=== PATIENT | female | born 1985 | race Caucasian/White ===

== ENCOUNTER 2016-07-11 18:26 | Inpatient (IN) | payer OTHER ==
[~2016-07-11] VITALS: Ht 152.4 cm; Wt 54.0 kg
[~2016-07-11 18:26] MED LIST: ALBU0.0939 IH; LEVE750T3 PO; SYN.1 PO; [UNRECOGNIZED DRUG - CODE] PO; [UNRECOGNIZED DRUG - CODE] PO
--- NOTE | 2016-07-11 18:26 | NUR ---
Patient BIBA ACLS, transferred to bed 5. Dr. David and RN evaluating patient at bedside.
[2016-07-11] MEDS ORDERED: MORPHINE SULFATE 2 MG/ML SYR IVP ONE ×2 (18:30→19:45)
[2016-07-11] MEDS ORDERED: ALBUTEROL SULFATE/IPRATROPIU 3 ML SOL IH ONE ×2 (18:30→19:45)
[2016-07-11] MEDS ORDERED: ONDANSETRON 4 MG/2 ML VIAL IVP ONE ×2 (18:30→19:45)
[2016-07-11] MEDS ORDERED: MAG SULF 2000 MG/WATER PREMIX 50 ML IV ONE (18:30)
[2016-07-11 18:32] VITALS: BP 151/100
--- NOTE | 2016-07-11 18:35 | NUR ---
PT BIBA FOR EVALUATION OF SOB X1 HOUR. HX SEIZURE DISORDER, ASTHMA, HYPOCALCEMIA; DENIES N/V; SKIN IS PINK/WARM/DRY; AAOX4 WITH EVEN AND STEADY GAIT; LUNGS CLEAR BL; HR EVEN AND REGULAR; PT DENIES ANY FEVER, CP, OR COUGH AT THIS TIME; PATIENT STATES PAIN OF 9/10 AT THIS TIME; VSS; PATIENT POSITIONED FOR COMFORT; HOB ELEVATED; BEDRAILS UP X2; BED DOWN. ER MD MADE AWARE OF PT STATUS.
[2016-07-11 18:58] LABS: BASOPHILS # (AUTO) 0.2 K/uL (0.00-0.22); EOSINOPHILS # (AUTO) 0.7 K/uL (0-0.4); EOSINOPHILS % (AUTO) 8.3 % (0.0-4.0); HEMATOCRIT 35.7 % (36-48); LYMPHOCYTES # (AUTO) 2.4 K/uL (2.5-16.5); LYMPHOCYTES % (AUTO) 30.7 % (20.5-51.1); MEAN CORPUSCULAR HEMOGLOBIN 32 pg (27-31); MEAN CORPUSCULAR HGB CONC 34 g/dL (33-37); MEAN CORPUSCULAR VOLUME 95 fL (80-94); MONOCYTES # (AUTO) 0.6 K/uL (0.8-1.0); NEUTROPHILS # (AUTO) 4.1 K/uL (1.8-7.7); PLATELET COUNT (AUTO) 268 K/uL (140-450); RED BLOOD CELL COUNT(AUTO) 3.76 MIL/uL (4.20-5.40); RED CELL DISTRIBUTION WIDTH 12.2 % (11.6-13.7)
[2016-07-11 19:23] LABS: ALBUMIN 4.2 g/dL (3.4-5.0); CARBON DIOXIDE 31.8 mmol/L (21-32); CREATININE 0.9 mg/dL (0.6-1.3); TOTAL BILIRUBIN 0.6 mg/dL (0.0-1.0); TOTAL PROTEIN, SERUM 7.3 g/dL (6.4-8.2)
--- NOTE | 2016-07-11 19:23 | NUR ---
REPORT GIVEN TO SONJA KIRBY FOR CONTINUATION OF CARE
[2016-07-11 19:25] LABS: POTASSIUM 2.8 mmol/L (3.5-5.1)
--- NOTE | 2016-07-11 19:25 | NUR ---
PT RESTING IN BED, RT AT BED SIDE PERFORMING BRATHING TX. PT C/O PAIN 07/15. ER MD NOTIFIED. VSS.
[2016-07-11] MEDS ORDERED: POTASSIUM CHLORIDE 10 MEQ TABER PO ONE ×2 (19:30→22:30)
[2016-07-11 19:32] LABS: INR 1.2 (0.8-1.2); PARTIAL THROMBOPLASTIN TIME 26.8 secs (22-35.6); PROTHROMBIN TIME 11.2 secs (10.8-13.4)
[2016-07-11] MEDS ORDERED: PIPERACILLIN/TAZOBACTAM 3.375 GM in DEXTROSE 5% 50 ML IV ONE (19:45)
[2016-07-11] MEDS ORDERED: PIPERACILLIN/TAZOBACTAM 3.375 GM VIAL IV ONE (20:16)
--- NOTE | 2016-07-11 20:33 | NUR ---
Patient will be admitted to care of DR SIMPSON. Admited to TELEMETRY. Will go to [id number]. Belongings list completed. Report to SONJA KEANE.
--- NOTE | 2016-07-11 20:47 | NUR ---
PT TRASFERED TO TELEMETRY FLOOR VIA GURNEY. VSS, NO S/S OF DISTRESS NOTED DURING TRASFER. ACCOMPANIED BY RN AND EMT.
[2016-07-11 20:50] VITALS: BP 103/71
--- NOTE | 2016-07-11 20:50 | NUR ---
ADMITTED A 31F FROM ER, TELE PT. CAME BY MATILDE. AWAKE, ALERT AND ORIENTEDX4. WITH NO ACUTE DISTRESS NOTED. ON RA O2 SAT 96%. WITH SOME WHEEZING NOTED ON EXPIRATION. NO C/O PAIN AT THIS TIME. HAS IVF INFUSING WELL ON THE LT AC #20. CLEAR AND PATENT. PLAN OF CARE DISCUSSED AND VERBALIZED UNDERSTANDING. PLACED COMFORTABLY IN BED. BED ON LOW POSITION. SIDE RAILS UP . X2. WITH CALL LIGHT PLACED WITHIN EASY REACH. WILL FOLLOW UP ADMIT ORDERS.
--- NOTE | 2016-07-11 22:00 | NUR ---
PT NEEDS ATTENDED. . NO SOB NOTED. WILL CONTINUE TO MONITOR.
[2016-07-11] MEDS ORDERED: ALBUTEROL 0.083% 2.5 MG/3 ML NEBU IH PRN (22:25)
[2016-07-11] MEDS ORDERED: ZOLPIDEM 5 MG TAB PO PRN (22:25)
[2016-07-11] MEDS: NACL 0.9% 1,000 ML IV SCH (22:25)
[2016-07-11] MEDS ORDERED: methylPREDNISolone SS 125 MG/2 ML VIAL IVP ONE (22:35)
[2016-07-11 22:48] LABS: APPEARANCE,URINE CLEAR (CLEAR); BILIRUBIN,URINE NEGATIVE (NEGATIVE); BLOOD, URINE TRACE-L (NEGATIVE); COLOR,URINE YELLOW (YELLOW); LEUKOCYTE ESTERASE ,URINE 1+ (NEGATIVE); NITRITE, URINE NEGATIVE (NEGATIVE); PROTEIN,URINE NEGATIVE (NEGATIVE); UGLUCOSE NEGATIVE (NEGATIVE); UROBILINOGEN,URINE 0.2 EU/dL (0.2 - 1)
[2016-07-11 23:01] LABS: BACTERIA,URINE 1+ /HPF (None Seen); RBC,URINE 0-3 /HPF (0-5)
[2016-07-11 23:06] LABS: CHOL/HDL RATIO 3.9 (1-4.5); FREE T4 (FREE THYROXINE) 1.11 ng/dL (0.76-1.46); THYROID STIMULATING HORMONE 6.23 uIU/mL (0.34-3.76)
[2016-07-11 23:30] VITALS: BP 120/74
[2016-07-11] MEDS: MORPHINE SULFATE 2 MG/ML SYR IVP PRN (23:41)
--- NOTE | 2016-07-11 23:41 | NUR ---
PT C/O PAIN . MEDICATED ORDERED. WILL CONTINUE TO MONITOR.
[2016-07-11] MEDS: ONDANSETRON 4 MG/2 ML VIAL IVP PRN (23:59)
--- NOTE | 2016-07-12 00:12 | NUR ---
PT C/O SOB. WITH SOME WHEEZING. RT WAS PAGED AND CAME .GAVE BREATHING TREATMENT.
[2016-07-12] MEDS ORDERED: ALBUTEROL SULFATE/IPRATROPIU 3 ML SOL IH PRN (00:20)
[2016-07-12] MEDS ORDERED: ALBUTEROL 0.083% 2.5 MG/3 ML NEBU IH SCH (01:00)
[2016-07-12 03:47] VITALS: BP 109/82
[2016-07-12] MEDS: MORPHINE SULFATE 2 MG/ML SYR IVP PRN ×2 (03:50→09:05)
--- NOTE | 2016-07-12 03:50 | NUR ---
PT AWAKE AGAIN AND C/O ABDOMINAL PAIN. NO NAUSEA NOTED. MEDICATED ORDERED. WILL CONTINUE TO MONITOR.
[2016-07-12] MEDS: methylPREDNISolone SS 40 MG/ML VIAL IVP SCH ×3 (05:40→21:48)
--- NOTE | 2016-07-12 06:00 | NUR ---
SCD MACHINE TO BLE APPLIED PER MD ORDER. PT AWARE OF BENEFITS.
[2016-07-12] MEDS: ALBUTEROL SULFATE/IPRATROPIU 3 ML SOL IH SCH ×5 (06:32→23:00)
[2016-07-12 06:36] LABS: HEMATOCRIT 35.1 % (36-48); HEMOGLOBIN 11.9 g/dL (12.0-16.0); MEAN CORPUSCULAR HEMOGLOBIN 32 pg (27-31); MEAN CORPUSCULAR HGB CONC 34 g/dL (33-37); MEAN CORPUSCULAR VOLUME 96 fL (80-94); PLATELET COUNT (AUTO) 262 K/uL (140-450); RED BLOOD CELL COUNT(AUTO) 3.66 MIL/uL (4.20-5.40); RED CELL DISTRIBUTION WIDTH 12.4 % (11.6-13.7); WHITE BLOOD COUNT (AUTO) 5.5 K/uL (4.8-10.8)
[2016-07-12 07:13] LABS: ANION GAP 17.1 (8-16); CREATININE 0.9 mg/dL (0.6-1.3); POTASSIUM 4.1 mmol/L (3.5-5.1)
[2016-07-12 07:15] LABS: MAGNESIUM 1.5 mg/dL (1.8-2.4); PHOSPHORUS 7.9 mg/dL (2.5-4.9)
--- NOTE | 2016-07-12 07:20 | NUR ---
ENDORSED PT IN STABLE CONDITION TO AM NURSE.
--- NOTE | 2016-07-12 07:25 | NUR ---
PATIENT LYING COMFORTABLY IN BED, NO SIGNS OF DISTRESS NOTED, A/O X 4.
[2016-07-12 07:46] LABS: BAND % (MANUAL) 1 % (0-8); LYMPHOCYTES % (MANUAL) 6 % (20-46); MONOCYTES % (MANUAL) 1 % (5-12); NEUTROPHILS % (MANUAL) 92 (43-65); PLATELET ESTIMATE ADEQUATE
[2016-07-12 07:50] LABS: CALCIUM 5.5 mg/dL (8.5-10.1)
[2016-07-12 08:00] VITALS: BP 91/57
--- NOTE | 2016-07-12 08:54 | NUR ---
PATIENT HAS BEEN SCREENED AND CATEGORIZED MODERATE NUTRITION RISK. PATIENT WILL BE SEEN WITHIN 3-5 DAYS OF ADMISSION. 07/14/16-07/16/[address]
[2016-07-12] MEDS: GABAPENTIN 300 MG CAP PO SCH ×2 (09:05→21:49)
[2016-07-12] MEDS: ONDANSETRON 4 MG/2 ML VIAL IVP PRN ×2 (09:05→22:54)
[2016-07-12] MEDS: levETIRAcetam 500 MG TAB PO SCH ×2 (09:06→21:49)
[2016-07-12] MEDS: LEVOTHYROXINE 0.1 MG TAB PO SCH (09:06)
[2016-07-12] MEDS: CALCIUM CARBONATE 500 MG TAB.CHEW PO SCH ×2 (09:07→21:49)
[2016-07-12] MEDS: NACL 0.9% 1,000 ML IV SCH (09:12)
--- NOTE | 2016-07-12 10:00 | NUR ---
SPOKE WITH DR. LONGORIA NOTIFIED THAT DR. GREWAL ORDERED TROPONIN AND HE WANTS ATTENDING TO ORDER ECHOCARDIOGRAM.
--- NOTE | 2016-07-12 11:25 | NUR ---
DR. LONGORIA notified mag level 1.5
[2016-07-12 11:46] VITALS: BP 134/91
[2016-07-12] MEDS: LORazepam 2 MG/ML VIAL IVP PRN (11:49)
--- NOTE | 2016-07-12 13:01 | NUR ---
pt was a q6 duoneb and it was changed to q4 duoneb pt refused tx no signs of distress noted at this time
--- NOTE | 2016-07-12 13:07 | NUR ---
spoke with jared ramachandran about the change of hhn tx and told jared ramachandran that pt refused tx
--- NOTE | 2016-07-12 13:20 | NUR ---
CM NOTE PER SURGERY REGISTRATION REP ЮЛИЯ MEREDITH FOR CERTIFIED PERSONAL FINANCE COUNSELOR KRISSY, REVIEWS SHOULD GO TO BOTH [facility] AND [facility]. FAXED INITIAL REVIEW TO [facility] [phone] PH# JULY [phone] AND TO [facility] [phone] PH# ROBERT [phone]
--- NOTE | 2016-07-12 14:44 | NUR ---
pt refused breathing tx hr 76 rr 20 02 sat 96% no signs of distress noted at this time
[2016-07-12] MEDS ORDERED: MAG SULF 2000 MG/WATER PREMIX 100 ML IV ONE (15:20)
[2016-07-12] MEDS ORDERED: CALCIUM ACETATE 667 MG TAB PO SCH (15:40)
[2016-07-12 16:00] VITALS: BP 109/67
--- NOTE | 2016-07-12 17:21 | NUR ---
Patient still sleeping, DR. Hernandez notified, seen as well.
--- NOTE | 2016-07-12 17:54 | NUR ---
Patient now more awake, arousable, open eyes, refused to eat dinner.
--- NOTE | 2016-07-12 19:10 | NUR ---
SBAR REPORT GIVEN TO SONJA ROSAS
--- NOTE | 2016-07-12 19:30 | NUR ---
RECEIVED REPORT FROM AM NURSE. PT RESTING IN BED. AOX4, ABLE TO VERBALIZE NEEDS. PT DENIES CHEST PAIN, SOB, OR S/S OF ACUTE DISTRESS. HYDROGEN POWER PLANT MANAGER IN PLACE. PT STATES GENERALIZED WEAKNESS. PT INSTRUCTED TO USE CALL LIGHT TO GET ASSISTANCE TO COLLECT URINE SAMPLE. DISCUSSED AND REVIEWED PLAN OF CARE WITH PT. PT VERBALIZES UNDERSTANDING. IV ACCESS ASYMPTOMATIC, PATENT AND INTACT. IVF INFUSING WELL. SAFETY MEASURES ENSURED. CALL LIGHT WITHIN REACH. WILL CONTINUE TO MONITOR.
[2016-07-12 20:00] VITALS: BP_SYST 120; BP_SYST 91; BP_DIAS 42; BP_DIAS 52
--- NOTE | 2016-07-12 20:00 | NUR ---
PT C/O 10/15 PAIN, REQUESTING MORPHINE. CONTRAINDICATED BY LOW BP 91/42. PT ENCOURAGED USE DISTRACTION, REPOSITIONING AND RELAXATION TO RELIEVE PAIN. WILL RECHECK LATER.
[2016-07-12] MEDS: ATORVASTATIN 20 MG TAB PO SCH (21:49)
[2016-07-12] MEDS: CALCIUM CARB/VIT-D 500 MG/200 IU 1 TAB PO SCH (21:49)
--- NOTE | 2016-07-12 21:55 | NUR ---
MEDICATIONS ADMINISTERED WITH EDUCATION. PT VERBALIZED UNDERSTANDING AND TOLERATED MEDS WELL. ALL NEEDS MET. SAFETY MEASURES ENSURED. CALL LIGHT WITHIN REACH. WILL CONTINUE TO MONITOR.
--- NOTE | 2016-07-12 23:34 | NUR ---
PT WANTS TO SLEEP, REFUSED HHNTX, NO DISTRESS NOTED, NO SOB
[2016-07-13] VITALS: BP 120/52
[2016-07-13] MEDS: MORPHINE SULFATE 2 MG/ML SYR IVP PRN ×4 (00:42→20:21)
--- NOTE | 2016-07-13 00:42 | NUR ---
PT C/O PAIN. SEE PAIN ASSESSMENT. ADMINISTERED MORPHINE ORDERED. PT TOLERATED WELL. ALL NEEDS MET. SAFETY MEASURES ENSURED. CALL LIGHT WITHIN REACH. WILL CONTINUE TO MONITOR.
[2016-07-13] MEDS: ALBUTEROL SULFATE/IPRATROPIU 3 ML SOL IH SCH ×6 (03:10→23:19)
[2016-07-13 04:00] VITALS: BP 83/54
--- NOTE | 2016-07-13 04:00 | NUR ---
PT SLEEPING. VS NOTED. SPO2 90%, NC NOTED TO BE UNPLUGGED FROM O2 WALL. 2L O2 NC PUT BACK ON O2 WALL, SPO2 95%, RR 16. BP 83/54, HR 80, PT SLEEPING COMFORTABLY. CONDITION STABLE.
[2016-07-13] MEDS: methylPREDNISolone SS 40 MG/ML VIAL IVP SCH ×3 (04:51→20:21)
[2016-07-13 06:15] LABS: BASOPHILS % (AUTO) 0.4 % (0.0-2.0); EOSINOPHILS # (AUTO) 0.2 K/uL (0-0.4); HEMATOCRIT 35.4 % (36-48); LYMPHOCYTES # (AUTO) 0.4 K/uL (2.5-16.5); LYMPHOCYTES % (AUTO) 3.8 % (20.5-51.1); MEAN CORPUSCULAR HEMOGLOBIN 33 pg (27-31); MEAN CORPUSCULAR HGB CONC 34 g/dL (33-37); MEAN CORPUSCULAR VOLUME 96 fL (80-94); MONOCYTES # (AUTO) 0.1 K/uL (0.8-1.0); MONOCYTES % (AUTO) 0.7 % (1.7-9.3); NEUTROPHILS # (AUTO) 9.1 K/uL (1.8-7.7); NEUTROPHILS % (AUTO) 93.1 % (42.2-75.2); PLATELET COUNT (AUTO) 263 K/uL (140-450); RED BLOOD CELL COUNT(AUTO) 3.68 MIL/uL (4.20-5.40); RED CELL DISTRIBUTION WIDTH 12.8 % (11.6-13.7)
[2016-07-13 06:38] LABS: MAGNESIUM 2.7 mg/dL (1.8-2.4)
[2016-07-13] MEDS ORDERED: CALCIUM GLUCONATE 10% 1,000 MG in NACL 0.9% 50 ML IV ONE (06:45)
[2016-07-13 06:55] LABS: ANION GAP 16.1 (8-16); CARBON DIOXIDE 26.6 mmol/L (21-32); CREATININE 0.8 mg/dL (0.6-1.3); POTASSIUM 3.7 mmol/L (3.5-5.1); WHITE BLOOD COUNT (AUTO) 9.8 K/uL (4.8-10.8)
[2016-07-13 07:19] LABS: CALCIUM 5.1 mg/dL (8.5-10.1)
--- NOTE | 2016-07-13 07:21 | NUR ---
CONDITION STABLE. ENDORSED PLAN OF CARE TO AM NURSE.
--- NOTE | 2016-07-13 07:30 | NUR ---
RECEIVED PT ON BED AAOX4 WITH HX OF SEIZURES. ON SEIZURE PRECAUTIONS, SIDE RAILS PADDED. NO SOB NOTED, WITH 02 AT 2LPM VIA NASAL CANNULA, O2 SATS AT 95%. NO C/O PAIN AT THIS TIME. IV TO LT AC PATENT AND INTACT. CHEST DIMINISHED AIR ENTRY TO THE BASES, WHEEZING HEARD BILATERALLY. ABDOMEN SOFT, BOWEL SOUNDS PRESENT. NO EDEMA NOTED. SCD'S IN PLACE. INSTRUCTED PT TO CALL FOR ASSISTANCE, CALL LIGHT WITHIN REACH. PT VERBALIZED UNDERSTANDING.
[2016-07-13 08:00] VITALS: BP 104/68
[2016-07-13] MEDS: GABAPENTIN 300 MG CAP PO SCH ×2 (09:12→20:23)
[2016-07-13] MEDS: LEVOTHYROXINE 0.1 MG TAB PO SCH (09:12)
[2016-07-13] MEDS: LACTOBACILLUS RHAMNOSUS GG 1 EACH CAP PO SCH (09:12)
[2016-07-13] MEDS: CALCIUM CARB/VIT-D 500 MG/200 IU 1 TAB PO SCH (09:12)
[2016-07-13] MEDS: CALCIUM CARBONATE 500 MG TAB.CHEW PO SCH (09:12)
[2016-07-13] MEDS: levETIRAcetam 500 MG TAB PO SCH ×2 (09:13→20:22)
[2016-07-13 09:47] LABS: T4 (THYROXINE) 7.3 ug/dL (4.5-12.0)
--- NOTE | 2016-07-13 10:00 | NUR ---
PT SEEN BY DR. GREWAL WITH NEW ORDERS.
--- NOTE | 2016-07-13 11:14 | NUR ---
AWAKE AND ALERT C/O NASAL DRYNESS WITH SUPPLEMENTAL OXYGEN USE POST HHN THERAPY ADDED HUMIDIFIER
[2016-07-13 12:00] VITALS: BP 140/81
[2016-07-13] MEDS ORDERED: CALCIUM ACETATE 667 MG TAB PO SCH (13:01)
[2016-07-13 13:05] LABS: BLOOD GAS BASE EXCESS -1.3 mmol/L (-2.0-2.0); BLOOD GAS HCO3 22.7 mmol/L; BLOOD GAS O2 SAT% 98.3 % (92.0-98.5); BLOOD GAS PCO2 35.4 mmHg (20-50); BLOOD GAS PH 7.424 (7.35-7.45); BLOOD GAS PO2 132.1 mmHg
[2016-07-13] MEDS ORDERED: guaiFENesin/CODEINE 100/10MG 5 ML UDC PO PRN (13:15)
[2016-07-13] MEDS: LORazepam 2 MG/ML VIAL IVP PRN (13:39)
[2016-07-13] MEDS: ONDANSETRON 4 MG/2 ML VIAL IVP PRN (13:49)
[2016-07-13] MEDS ORDERED: CALCIUM GLUCONATE 10% 2,000 MG in NACL 0.9% 50 ML IV SCH (14:00)
[2016-07-13 14:50] LABS: AMPHETAMINE, URINE NEG. ng/ml (NEG <=1000); BARBITURATE, URINE NEG. ng/ml (NEG <=200); BENZODIAZEPINE, URINE NEG. ng/mL (NEG <=200); CANNABINOID, URINE NEG. ng/mL (NEG <=50); COCAINE, URINE NEG. ng/mL (NEG <=300); OPIATE, URINE POS. ng/mL (NEG <=2000); PHENCYCLIDINE SCREEN,URINE NEG. ng/mL (NEG <=25)
--- NOTE | 2016-07-13 15:02 | NUR ---
CM NOTE FAXED CONCURRENT REVIEW TO [facility] [phone] PH# JULY [phone] AND TO SYDNIE Moon [phone] PH# ROBERT [phone]
[2016-07-13 16:00] VITALS: BP 122/76
--- NOTE | 2016-07-13 17:53 | NUR ---
DR. PEREZ IS HERE TO SEE PT. Addendum: 07/13/16 at 1835 by Oneida Brown RN DISREGARD ABOVE NOTES. WRONG DR. METZGER.
--- NOTE | 2016-07-13 18:35 | NUR ---
PT SEEN BY DR. DUMONT WITH NEW ORDERS.
--- NOTE | 2016-07-13 19:09 | NUR ---
PT RESTING. NO SOB NOTED. NO COMPLAINTS MADE AT TIME. WILL ENDORSE TO NEXT SHIFT NURSE FOR CONTINUE OF CARE.
[2016-07-13] MEDS: BUDESONIDE 0.5 MG/2 ML NEBU INH SCH (19:38)
--- NOTE | 2016-07-13 19:45 | NUR ---
RECEIVED PT IN STABLE CONDITION FROM AM NURSE. AWAKE,ALERT AND ORIENTED X4. ON TELE MONITOR-ST. BEDREST. WITH NO C/O OD ANY DISCOMFORT AT THIS TIME. HAS IVF INFUSING WELL ON THE LT AC#20. CLEAR AND PATENT. SIDE RAILS ARE PADDED FOR SEIZURE PRECAUTION.PLAN OF CARE DISCUSSED AND VERBALIZED UNDERSTANDING. CALL LIGHT PLACED WITHIN EASY REACH. WILL CONTINUE TO MONITOR.
[2016-07-13 20:00] VITALS: BP 121/78
[2016-07-13] MEDS: ATORVASTATIN 20 MG TAB PO SCH (20:23)
[2016-07-13] MEDS: NACL 0.9% 1,000 ML IV SCH (21:55)
--- NOTE | 2016-07-13 22:00 | NUR ---
2200. SLEEPING AT THIS TIME. NO S/S OF DISCOMFORT NOTED.
[2016-07-14 00:30] VITALS: BP 109/67
[2016-07-14] MEDS: MORPHINE SULFATE 2 MG/ML SYR IVP PRN ×5 (02:54→22:33)
--- NOTE | 2016-07-14 02:54 | NUR ---
C/O PAIN ON THE BACK. MEDICATED FOR PAIN ORDERED. WILL CONTINUE TO MONITOR.
[2016-07-14 03:22] VITALS: BP 111/70
[2016-07-14] MEDS: ALBUTEROL SULFATE/IPRATROPIU 3 ML SOL IH SCH ×6 (03:23→23:23)
[2016-07-14] MEDS: LEVOTHYROXINE 0.1 MG TAB PO SCH (05:38)
[2016-07-14] MEDS: methylPREDNISolone SS 40 MG/ML VIAL IVP SCH ×3 (05:38→20:43)
[2016-07-14] MEDS: BUDESONIDE 0.5 MG/2 ML NEBU INH SCH ×2 (06:55→19:18)
--- NOTE | 2016-07-14 07:30 | NUR ---
RECEIVED PATIENT REPORT AT BEDSIDE. PATIENT ASLEEP BUT EASILY AROUSABLE. PATIENT ON ROOM AIR. NO S/S OF DISTRESS NOTED. IV LINE NOTED TO THE LEFT AC WITH IVF INFUSING WELL. PATIENT ON TELE MONITORING. BED LOWERED WITH CALL LIGHT WITHIN REACH. WILL CONTINUE TO MONITOR
--- NOTE | 2016-07-14 07:32 | NUR ---
ENDORSED PT IN STABLE CONDITION TO AM NURSE.
[2016-07-14 08:00] VITALS: BP 125/67
--- NOTE | 2016-07-14 08:40 | NUR ---
PATIENT SEEN BY DR GREWAL. PATIENT REQUESTED TO BE PUT BACK ON O2. PATIENT O2 SATURATION ON ROOM AIR IS 93%
[2016-07-14] MEDS: CALCIUM ACETATE 667 MG TAB PO SCH (08:43)
[2016-07-14] MEDS: GABAPENTIN 300 MG CAP PO SCH ×2 (08:43→20:42)
[2016-07-14] MEDS: levETIRAcetam 500 MG TAB PO SCH ×2 (08:43→20:43)
[2016-07-14] MEDS: LACTOBACILLUS RHAMNOSUS GG 1 EACH CAP PO SCH (08:43)
[2016-07-14] MEDS: LEVOFLOXACIN 500 MG/D5W PREMIX 100 ML IV SCH (09:59)
[2016-07-14 10:04] LABS: HEMATOCRIT 36.5 % (36-48); HEMOGLOBIN 12.2 g/dL (12.0-16.0); MEAN CORPUSCULAR HEMOGLOBIN 32 pg (27-31); MEAN CORPUSCULAR HGB CONC 33 g/dL (33-37); MEAN CORPUSCULAR VOLUME 95 fL (80-94); PLATELET COUNT (AUTO) 265 K/uL (140-450); RED BLOOD CELL COUNT(AUTO) 3.82 MIL/uL (4.20-5.40); RED CELL DISTRIBUTION WIDTH 12.6 % (11.6-13.7); WHITE BLOOD COUNT (AUTO) 17.6 K/uL (4.8-10.8)
[2016-07-14 10:13] LABS: ANION GAP 13.8 (8-16); CALCIUM 6.2 mg/dL (8.5-10.1); CARBON DIOXIDE 26.4 mmol/L (21-32); CREATININE 0.7 mg/dL (0.6-1.3); POTASSIUM 4.2 mmol/L (3.5-5.1)
[2016-07-14 10:31] LABS: ALBUMIN 4.1 g/dL (3.4-5.0); MAGNESIUM 1.6 mg/dL (1.8-2.4)
[2016-07-14 10:36] LABS: BAND % (MANUAL) 5 % (0-8); LYMPHOCYTES % (MANUAL) 3 % (20-46); MONOCYTES % (MANUAL) 2 % (5-12); NEUTROPHILS % (MANUAL) 90 (43-65)
[2016-07-14] MEDS: LORazepam 2 MG/ML VIAL IVP PRN (11:41)
[2016-07-14 12:00] VITALS: BP 132/88
--- NOTE | 2016-07-14 12:45 | NUR ---
PATIENT SEEN BY PHYSICAL THERAPIST
--- NOTE | 2016-07-14 12:57 | NUR ---
CM NOTE FAXED CONCURRENT REVIEW TO [facility] [phone] PH# JULY [phone] AND TO SYDNIE Moon [phone] PH# ROBERT [phone]
--- NOTE | 2016-07-14 13:00 | NUR ---
ASSISTED PATIENT WITH LUNCH. PATIENT HAS POOR APPETITE. PATIENT WAS ABLE TO CONSUME 25% OF HER MEAL
--- NOTE | 2016-07-14 13:27 | NUR ---
Social Service Note: Per patient, she has a nebulizer that works properly at home, no home 02, heel caser Estefany jain.
--- NOTE | 2016-07-14 15:00 | NUR ---
MADE DR LONGORIA AWARE OF PATIENT'S MG LEVEL OF 1.6
[2016-07-14 16:00] VITALS: BP 134/90
--- NOTE | 2016-07-14 19:16 | NUR ---
PATIENT REPORT GIVEN AT BEDSIDE. PATIENT ENDORSED IN STABLE CONDITION
--- NOTE | 2016-07-14 19:17 | NUR ---
RECEIVED REPORT, ASSUMED CARE.PT AAOX4. RESPIRATION EVEN AND UNLABORED,NO SOB,NO C/O PAIN AT THIS TIME. NO S/S OF RESPIRATORY DISTRESS AT THIS TIME. IV ACCESS TO LT AC INTACT AND PATENT, NO S/S OF INFILTRATION. INFUSING NS @ 20ML/HR. DISCUSSED PLAN OF CARE. EDUCATION PROVIDED RE: SAFETY AND FALL PREVENTION. PT VERBALIZED UNDERSTANDING. CALL LIGHT PLACED WITHIN EASY REACH. WILL CONTINUE TO MONITOR
[2016-07-14 20:00] VITALS: BP 110/70
[2016-07-14] MEDS: NACL 0.9% 1,000 ML IV SCH (20:27)
[2016-07-14] MEDS: ATORVASTATIN 20 MG TAB PO SCH (20:42)
--- NOTE | 2016-07-14 20:43 | NUR ---
ALL DUE MEDS GIVEN, PT TOLERATED WELL. NO ADVERSE REACTION NOTED AT THIS TIME. WILL CONTINUE TO MONITOR.
--- NOTE | 2016-07-14 20:53 | NUR ---
RECEIVED REPORT, ASSUMED CARE.PT AAOX4. RESPIRATION EVEN AND UNLABORED,NO SOB,NO C/O PAIN AT THIS TIME. NO S/S OF RESPIRATORY DISTRESS AT THIS TIME. IV ACCESS TO LT AC INTACT AND PATENT, NO S/S OF INFILTRATION. INFUSING NS @ 20ML/HR. DISCUSSED PLAN OF CARE. EDUCATION PROVIDED RE: SAFETY AND FALL PREVENTION. PT VERBALIZED UNDERSTANDING. CALL LIGHT PLACED WITHIN EASY REACH. WILL CONTINUE TO MONITOR. Addendum: 07/14/16 at 2349 by Ivy Morales RN --- SEE 7 CHARTING---
--- NOTE | 2016-07-14 21:13 | NUR ---
PT AWAKE, RESTING IN BED AT THIS TIME. OFFERED TO CHANGE HER DIAPER. PT REFUSES AND STATES, "I DON'T NEED IT RIGHT NOW." ATTEMPTED TO CHECK HER DIAPER, PT CONTINUES TO REFUSES DESPITE PROMPTING AND EXPLANATIONS OF RISKS/BENEFITS. WILL RE-ATTEMPT LATER.
--- NOTE | 2016-07-14 22:00 | NUR ---
PT CALLED STAFF TO HAVE HER DIAPER CHANGED. KEPT PATIENT DRY AND COMFORTABLE. WILL CONTINUE TO MONITOR.
[2016-07-14] MEDS ORDERED: MORPHINE SULFATE 4 MG/ML SYR ONE (22:25)
--- NOTE | 2016-07-14 22:33 | NUR ---
PT C/O LOW BACK PAIN 09/14. MORPHINE 2MG GIVEN ORDERED. HOWEVER, DUE TO UNAVAILABILITY OF MORPHINE 2MG ON HAND, 4MG MORPHINE WAS SCANNED, 0.5ML WAS ADMINISTERED AND WITNESSED BY ASHISH CASILLAS.
--- NOTE | 2016-07-14 23:33 | NUR ---
PT SOUND ASLEEP AT THIS TIME, NO FACIAL GRIMACING OR MOANING INDICATING PAIN. WILL CONTINUE TO MONITOR
[2016-07-15] VITALS: BP 113/74
--- NOTE | 2016-07-15 00:37 | NUR ---
PT SLEEPING AT THIS TIME WITH REGULAR BREATHING PATTERN. NO S/S OF RESPIRATORY DISTRESS. NO FACIAL GRIMACING INDICATING PAIN. WILL CONTINUE TO MONITOR.
[2016-07-15] MEDS: ALBUTEROL SULFATE/IPRATROPIU 3 ML SOL IH SCH ×3 (03:17→11:19)
[2016-07-15] MEDS: ONDANSETRON 4 MG/2 ML VIAL IVP PRN (03:27)
--- NOTE | 2016-07-15 03:27 | NUR ---
PT CURRENTLY ON BREATHING TX, C/O FEELING NAUSEOUS. ZOFRAN 4MG GIVEN VIA IV PUSH. PT TOLERATED WELL. WILL CONTINUE TO MONITOR AND REASSESS FOR EFFECTIVENESS.
[2016-07-15 04:00] VITALS: BP 121/77
--- NOTE | 2016-07-15 04:30 | NUR ---
PT SOUND ASLEEP AT THIS TIME WITH REGULAR BREATHING PATTERN. NO FACIAL GRIMACING INDICATING PAIN. WILL CONTINUE TO MONITOR.
[2016-07-15] MEDS: methylPREDNISolone SS 40 MG/ML VIAL IVP SCH ×2 (04:51→12:50)
[2016-07-15] MEDS: LEVOTHYROXINE 0.1 MG TAB PO SCH (06:18)
--- NOTE | 2016-07-15 06:53 | NUR ---
PT REFUSED HHN TX AND ASSESSMENT AT AT THIS TIME. WILL CONTINUE TO MONITOR.
[2016-07-15] MEDS: BUDESONIDE 0.5 MG/2 ML NEBU INH SCH (06:54)
[2016-07-15 06:57] LABS: ANION GAP 10.4 (8-16); CALCIUM 7.4 mg/dL (8.5-10.1); CARBON DIOXIDE 26.3 mmol/L (21-32); CREATININE 0.7 mg/dL (0.6-1.3); POTASSIUM 3.7 mmol/L (3.5-5.1)
--- NOTE | 2016-07-15 07:22 | NUR ---
PT AWAKE AND VERBALLY RESPONSIVE. DENIES PAIN AT THIS TIME. NO S/S OF RESPIRATORY DISTRESS. ENDORSED TO NEXT SHIFT FOR CONTINUITY OF CARE. PT IN STABLE CONDITION.
--- NOTE | 2016-07-15 07:23 | NUR ---
RECEIVED REPORT FROM THE SECONDARY CONNECTOR ARMATURE NURSE AT BEDSIDE FOR CONTINUITY OF CARE. PT IS AWAKE AND ORIENTED. PT C/O OF PAIN IN HER BACK, RADIATING DOWN TO HER LEGS. WILL MEDICATE REQUESTED.
[2016-07-15 07:43] LABS: HEMATOCRIT 36.1 % (36-48); HEMOGLOBIN 11.8 g/dL (12.0-16.0); MEAN CORPUSCULAR HEMOGLOBIN 32 pg (27-31); MEAN CORPUSCULAR HGB CONC 33 g/dL (33-37); MEAN CORPUSCULAR VOLUME 96 fL (80-94); PLATELET COUNT (AUTO) 268 K/uL (140-450); RED BLOOD CELL COUNT(AUTO) 3.75 MIL/uL (4.20-5.40); RED CELL DISTRIBUTION WIDTH 12.6 % (11.6-13.7); WHITE BLOOD COUNT (AUTO) 12.9 K/uL (4.8-10.8)
[2016-07-15 08:00] VITALS: BP 128/90
[2016-07-15] MEDS: LEVOFLOXACIN 500 MG/D5W PREMIX 100 ML IV SCH (08:05)
[2016-07-15] MEDS: levETIRAcetam 500 MG TAB PO SCH (08:05)
[2016-07-15] MEDS: GABAPENTIN 300 MG CAP PO SCH (08:05)
[2016-07-15] MEDS: CALCIUM ACETATE 667 MG TAB PO SCH (08:05)
[2016-07-15] MEDS: LACTOBACILLUS RHAMNOSUS GG 1 EACH CAP PO SCH (08:05)
--- NOTE | 2016-07-15 08:10 | NUR ---
V/S WITHIN NORMAL LIMITS. ADMINISTERED MORNING MEDS. PT TOLERATED WELL. UNABLE TO ADMINISTER PAIN MEDS. OUT OF STOCK IN [facility] [employer]. CALLED PHARMACY. LEFT MESSAGE. NOTIFIED PT.
[2016-07-15 08:12] LABS: LYMPHOCYTES % (MANUAL) 4 % (20-46); NEUTROPHILS % (MANUAL) 92 (43-65)
[2016-07-15 08:13] LABS: BAND % (MANUAL) 1 % (0-8); MONOCYTES % (MANUAL) 3 % (5-12)
[2016-07-15 08:14] LABS: PLATELET ESTIMATE ADEQUATE
[2016-07-15] MEDS: MORPHINE SULFATE 2 MG/ML SYR IVP PRN (09:12)
--- NOTE | 2016-07-15 09:12 | NUR ---
FINALLY, PHARMACY BROUGHT UP MEDS FOR RESTOCK. ADMINISTERED PAIN MED. PT TOLERATED WELL. WILL CONTINUE TO MONITOR PT.
--- NOTE | 2016-07-15 09:55 | NUR ---
07/15/16 RD INITIAL ASSESSMENT COMPLETED PLEASE REFER TO NUTRITION ASSESSMENT UNDER CARE ACTIVITY FOR ESTIMATED NUTRITIONAL NEEDS. RD RECOMMENDATIONS: 1. CONTINUE ON REGULAR DIET TOLERATED. 2. RDN TO PROVIDE HEALTH SHAKES WITH MEALS TID. 3. RD WILL F/U 3-5 DAYS; MODERATE RISK. DARLENE ARMENDARIZ MS, RDN
[2016-07-15] MEDS ORDERED: guaiFENesin DM 200/20 MG-10 ML 10 ML UDC PO PRN (10:15)
--- NOTE | 2016-07-15 10:47 | NUR ---
XRAY CALLED. THERE WAS AN ORDER FOR XRAY, PT REFUSED. PER MATERIAL SCHEDULER, PT NOT STABLE. CHECKED ON PT, PT IS STABLE. SHE DIDN'T FEEL LIKE HAVING IT DONE. I EXPLAINED TO THE PT THAT IT IS IMPORTANT TO HAVE IT DONE. PT VERBALIZED UNDERSTANDING. PT AGREED TO HAVE IT DONE WHEN THEY RETURN. WILL CONTINUE TO MONITOR PT.
--- NOTE | 2016-07-15 11:19 | NUR ---
R/T HERE FOR BREATHING TX. PT AGREED TO HAVE IT DONE.
[2016-07-15 12:00] VITALS: BP 98/71
[2016-07-15] MEDS ORDERED: IBUPROFEN 800 MG TAB PO PRN (12:30)
[2016-07-15] MEDS ORDERED: IBUP-2213 PO (12:32)
[2016-07-15] MEDS ORDERED: ALBU0.0912 IH (12:33)
[2016-07-15] MEDS ORDERED: METH4TAB3 PO (12:35)
[2016-07-15] MEDS ORDERED: LEVO500T22 PO (12:37)
[2016-07-15] MEDS ORDERED: SACC250C4 PO (12:38)
--- NOTE | 2016-07-15 12:53 | NUR ---
ADMINISTERED 1300 MEDS. PT TOLERATED WELL. REFUSED IBUPROFEN. STATED IT DOES NOT WORK. ASKED HOW SHE WAS GOING TO GET HOME. TOLD PT THAT WE CAN GIVE HER A BUS PASS.
--- NOTE | 2016-07-15 14:59 | NUR ---
PT REFUSED BREATHING TX IS GOING HOME AND NO SIGNS OF DISTRESS NOTED AT THIS TIME Addendum: 07/15/16 at 1501 by Qing Hill RT SONJA JOSE
--- NOTE | 2016-07-15 15:00 | NUR ---
WENT OVER DISCHARGE INFORMATION. PT VERBALIZED UNDERSTANDING. REMOVED IV, ID BANDS, AND TELE BOX. CALLED [employer] FOR FASHION PHOTOGRAPHER. GRINDER MACHINE SETTER ASSISTING PT TO GET DRESSED AND GET HER BELONGINGS TOGETHER. WILL WHEEL HER OUT WHEN THE [employer] GETS HERE.
--- NOTE | 2016-07-15 15:15 | NUR ---
WHEELED PT OUT TO THE FRONT LOBBY. [employer] CAME AND GOT VOUCHER SIGNED AND PINK SLIP GIVEN TO HOUSE RANJITH. Addendum: 07/15/16 at 1524 by Emily Wilkerson RN PT IN STABLE CONDITION.
[2016-07-17 12:21] LABS: HEMOGLOBIN A1C 5.2 % (4.8-5.6)
== END 2016-07-15 15:15 | disposition home or self-care (01) | DRG 141 ==
LOC: MED 18:26 → MTU 20:05
PROVIDERS: ADMIT Family Medicine; ATTEND Family Medicine
DX: J45.901 Unspecified asthma with (acute) exacerbation (principal); N17.0 Acute kidney failure with tubular necrosis; D82.1 Di George's syndrome; N39.0 Urinary tract infection, site not specified; E83.42 Hypomagnesemia; E78.5 Hyperlipidemia, unspecified; E03.9 Hypothyroidism, unspecified; E83.51 Hypocalcemia; E83.39 Other disorders of phosphorus metabolism; G40.909 Epilepsy, unspecified, not intractable, without status epilepticus; G62.9 Polyneuropathy, unspecified; Z88.6 Allergy status to analgesic agent; Z88.1 Allergy status to other antibiotic agents; F33.9 Major depressive disorder, recurrent, unspecified
CPT/HCPCS: 36415; 36600; 71010; 80048; 80053; 80305; 81001; 82040; 82310; 82803; 83036; 83735; 84100; 84436; 84439; 84443; 84479; 84484; 85025; 85610; 85730; 87040; 87081; 87086; 93005; 94640; 96365; 96375; 97116; 99285; J0610; J1956; J2060; J2270; J2405; J2543; J2920; J2930; J3475; J7030; J7060; J7613; J7620; J7626